=== PATIENT | female | born 1955 | race Caucasian/White ===

== ENCOUNTER 2019-02-16 05:52 | Day surgery (SDC) | payer OTHER ==
[~2019-02-16 05:52] MED LIST: CALCIUM 600-VI1 EAC2 PO; FA-80.8 MG PO; FOSAMAX70 MG PO; LOTREL 5-10 MG1 CAP PO; MAGNESIUM250 M1 PO; METHATREXATE PO; TYLENOL325 MG
[2019-02-16] MEDS ORDERED: PERCOCET 5-3251 EACH PO (12:15)
[2019-02-16] MEDS ORDERED: NABUMETONE500 MG PO (12:15)
== END 2019-02-16 14:30 | disposition home or self-care (01) ==
LOC: CIR.AMB 05:52
DX: M23.321 Other meniscus derangements, posterior horn of medial meniscus, right knee (principal); M23.311 Other meniscus derangements, anterior horn of medial meniscus, right knee; M94.261 Chondromalacia, right knee; M65.861 Other synovitis and tenosynovitis, right lower leg